=== PATIENT | male | born 1955 | race Caucasian/White ===

== ENCOUNTER 2024-04-17 21:47 | Observation (INO) | payer MEDICARE, BC ==
[~2024-04-17 21:47] MED LIST: cefTRIAXone 2 GM Vial ONE
[2024-04-17] MEDS: Morphine 2 MG/ML SYRINGE IVPUSH ONE ×2 (22:04→22:05)
[2024-04-17] MEDS: Aspirin 81 MG Tab.Chew PO ONE (22:05)
[2024-04-17] MEDS: Ondansetron 4 MG/2 ML SDV IVPUSH ONE (22:05)
[2024-04-17 22:11] LABS: BASOPHILS PERCENT AUTO 0.4 % (0.0-1.0); EOSINOPHILS PERCENT AUTO 2.3 % (1.0-3.0); HEMATOCRIT 43.9 % (40.0-54.0); LYMPHOCYTES PERCENT AUTO 37.8 % (20.5-50.1); MEAN CORPUSCULAR HEMOGLOBIN 32.5 pg (27.0-34.0); MEAN CORPUSCULAR HGB CONC 34.2 g/dL (33.0-35.0); MONOCYTES PERCENT AUTO 11.6 % (2-8); NEUTROPHILS PERCENT AUTO 47.9 % (42.2-75.2); PLATELET COUNT,PLT 223 10^3/uL (150-450); RED BLOOD CELL COUNT 4.62 10^6/uL (4.6-6.2); WHITE BLOOD CELL COUNT,WBC 9.4 10^3/uL (5.0-10.0)
[2024-04-17 22:23] LABS: INR 0.9 (0.9-1.2); PROTHROMBIN TIME 9.3 SEC (9.0-12.0)
[2024-04-17 22:29] LABS: A/G RATIO 1.2; ALBUMIN 3.8 g/dL (3.4-5.0); ANION GAP 10.8 mEq/L (7-13); BILIRUBIN TOTAL 0.2 mg/dL (0.2-1.0); BUN/CREATININE RATIO 13.2 (No establ ref range); CALCIUM 8.9 mg/dL (8.5-10.1); CREATININE 1.06 mg/dL (0.70-1.30); EST CRCL DRUG DOSING (CG) 66.7 mL/min; MAGNESIUM 1.9 mg/dL (1.8-2.4); POTASSIUM,K 3.8 mmol/L (3.5-5.1); PROTEIN TOTAL,TP 7.1 g/dL (6.4-8.2)
[2024-04-17] MEDS: Iopamidol 755 Mg/ML 100 ML Bottle IVPUSH ONE (23:35)
[2024-04-18] MEDS: Morphine 2 MG/ML SYRINGE ONE (00:56)
[2024-04-18] MEDS: Carvedilol 3.125 MG Tab PO ONE (01:21)
[2024-04-18] MEDS: atorvaSTATin 20 MG Tab PO ONE (01:22)
[2024-04-18] MEDS: cefTRIAXone 1 GM Vial IVPUSH ONE (01:42)
[2024-04-18] MEDS: Azithromycin 500 MG in Sodium Chloride 0.9% 250 ML IV ONE (01:43)
== END 2024-04-18 11:17 | disposition home or self-care (01) ==
LOC: DL.ED 21:47 → DL.MS 04-18 04:18
PROVIDERS: ADMIT Internal Medicine; ATTEND Internal Medicine
DX: J15.9 Unspecified bacterial pneumonia (principal); R07.2 Precordial pain; I25.10 Atherosclerotic heart disease of native coronary artery without angina pectoris; I10 Essential (primary) hypertension; E78.00 Pure hypercholesterolemia, unspecified; F17.210 Nicotine dependence, cigarettes, uncomplicated; Z79.82 Long term (current) use of aspirin; Z79.899 Other long term (current) drug therapy
CPT/HCPCS: 36415; 71045; 71275; 80053; 83690; 83735; 83880; 84484; 85025; 85379; 85610; 93005; 93010; 96365; 96375; 99239; 99284; 99285; A9270; J0456; J0696; J2270; J2405; J7050; Q9967; G0378